=== PATIENT | female | born 1995 | race Caucasian/White ===

== ENCOUNTER 2018-08-04 10:38 | Emergency (ER) | payer OTHER ==
--- NOTE | 2018-08-04 10:47 | EDPHY ---
HPI/HX/ROS/PE/MDM Narrative: CLINICAL IMPRESSION: Head injury, headache, nausea ASSESSMENT/PLAN: Patient is a 22-year-old female with a history of remote concussion who presents to the emergency department after sustaining a head injury while skiing. Patient is well appearing and in no acute distress, complains of generalized headache and low-grade nausea. The fall was witnessed and there was no loss of consciousness however there was significant damage done to her helmet. Her neurological exam is grossly normal with no focal deficit. She has no new focal neurologic deficit, there has been no altered mentation, there are no clinical findings to suggest skull fracture, there is no known bleeding disorder, there has been no vomiting and no posttraumatic seizure. She had no midline neck or back pain, no findings to suggest traumatic spinal injury. Given the patients mechanism and damage to helmet we do feel a head CT is indicated at this time. Head CT and C-spine revealed no acute abnormality. History and physical exam is consistent with concussion. There were no findings to suggest skull fracture, vertebral fracture, subluxation, ICH, epidural compression syndrome or cauda equina. The patient was observed for a period of time, her neurological exam remained grossly normal with no focal deficit and she reported feeling much better- only complained of mild global KHAN , denies nausea. She was able to ambulate independently and without difficulty. The patient had no further concerns. The patient is visiting from [place] for a ski race however is returning home tomorrow. She understands the importance of repeat exam an clearance prior to returning to skiing or other contact sports. Strict return precautions were discussed- they will return to the emergency department for altered mentation, lethargy, vomiting, seizure, abnormal movements or for any other concerning symptom. Patient verbalizes understanding and is in agreement with this plan. Case, results and plan of care discussed with Dr. Anthony. DIFFERENTIAL DX: Head injury including but not limited to concussion, skull fracture, intraparenchymal contusion, subarachnoid, subdural and epidural hematoma. ED COURSE: 10:45 a.m.: Patient arrived by EMS, Dr. Anthony and myself at bedside. Plan discussed with Dr. Anthony. CHIEF COMPLAINT: Head injury, headache, nausea HPI: Patient is a 22-year-old female with a history of remote concussion who presents to the emergency department after sustaining a head injury while skiing. 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 She was helmeted, there was no loss of consciousness. She did sustain a significant crack to her helmet. Patient was able to get down the rest of the hill however when she was at the urgent care at [place] started to experience some headache and nausea. This was worsened every time as she tried to sit up or move around. EMS was ultimately called and the patient was brought in by ambulance. Patient presents complaining of generalized, global headache with associated nausea. She denies any visual changes or focal weakness. She denies any neck or back pain. Patient denies any saddle paresthesia, motor weakness, numbness/tingling or extremities, urinary retention or loss of bowel/bladder control. PMH: Remote concussion Pertinent Past Surgical History: Denies Family History: Noncontributory Social History: Denies alcohol, denies illicit drug use and denies smoking REVIEW OF SYSTEMS: All other systems negative Constitutional: [No fever, no chills, appetite change.] Eyes: [No discharge, vision change] ENT: [No sore throat, congestion, ear pain.] Cardiovascular: [No chest pain, no palpitations.] Respiratory: [No cough, no shortness of breath.] Gastrointestinal: [Nausea. No abdominal pain, no vomiting, diarrhea.] Genitourinary: [No hematuria, dysuria, flank pain, pelvic pain] Musculoskeletal: [No back pain, joint swelling, joint pain, myalgias.] Skin: [No rashes, color change.] Neurological: [Headache. No dizziness, weakness.] PHYSICAL EXAM: General Appearance: [Alert, oriented, appropriate, cooperative, NAD, well hydrated, non-toxic appearing, VSS, no hypoxia.] HENT: [ Normocephalic, atraumatic. Bilateral external ears are normal. Bilateral tympanic membranes are normal with pearly patel reflex. No Hawthorne sign or raccoon eyes. Nares are clear, mucosa is pink. Oropharynx is clear, uvula is midline. There is no tonsillar enlargement or exudate. No malocclusion, no mandibular tenderness. The dentition is normal.] Eyes: [PERRLA, no acute vision change, nystagmus, swelling, discharge, pain or photosensitivity. Conjunctiva pink, no pallor or injection] Neck: [Supple, nontender, no lymphadenopathy, no midline pain, mild bilateral cervical paraspinal muscle tenderness into trapezius muscles, FROM, no meningismus.] Respiratory: [There are no retractions, lungs are clear to auscultation.] Cardiac: [Regular rate and rhythm, no murmurs or gallops.] Gastrointestinal: [Abdomen is soft, nontender, bowel sounds normal, no masses/ hernia, no rigidity, guarding or focal peritoneal findings.] Neurological: MENTAL STATUS: Patient is alert and oriented to person, place, time, and situation. Recent and remote memory are intact. Attention and concentration are normal. Found knowledge is appropriate to level of education. Mood and affect normal. SPEECH: Language including naming, repetition, comprehension, and spontaneous speech are normal. No dysarthria or dysphagia. CRANIAL NERVES: II: Visual jay are full to confrontation. Vision is grossly intact. III, IV, : Pupils are equal, round, reactive to light. Extraocular eye movements are full and without nystagmus. V: Facial sensation is intact to touch symmetrically in all 3 divisions. VII: Face is symmetric at rest with no asymmetry of grimace or evidence of facial weakness. VIII: Hearing is intact bilaterally to finger rub. IX, X: Palate is midline and elevates symmetrically with intact cough/gag. XI: Sternocleidomastoid and trapezius strength is normal. XII: Tongue protrudes midline without atrophy or fasciculations. MOTOR: Normal bulk and tone symmetrically in the upper and lower extremities. Upper extremities: shoulder abduction, elbow flexion, elbow extension, flexion of fingers and finger abduction strength 5/5 bilaterally. Lower extremities: hip flexion, knee flexion and extension, plantar and dorsiflexion of foot, and great toe extension strength 5/5 bilaterally. No pronator drift. SENSORY: Sensation is intact to light touch and symmetric in the UE's in LE's bilaterally. Romberg is negative. COORDINATION: Fine motor and rapid alternating movements are normal. Finger to nose is normal bilaterally. [id number] is normal bilaterally. No abnormal movements noted. There is no tremor at rest or with posture or action. GAIT/STATION: Casual, straightforward gait is normal. Patient can walk on toes and on heels. No gait instability. Back: No step-off, palpable bony abnormality, edema, erythema or ecchymosis of the thoracic or lumbar spines. TTP: No tenderness to palpation of the thoracic or lumbar spines. Full range of motion of all spines. 5/5 and equal strength of the UEs and LEs bilaterally including shoulder shrug. Pulses: 2+ and equal radial, DP and PT pulses bilaterally. Sensation intact and symmetric to light touch from face, UEs and LEs bilaterally. Skin: [Warm, dry, no rashes, no nodules on palpation.] Musculoskeletal: [Extremities are symmetrical, full range of motion, no tenderness, deformity, swelling, or erythema.] Psychiatric: [Patient is oriented X 3, there is no agitation.] MEDICAL DECISION MAKING: Patient was seen with Dr. Anthony. Diagnosis: Concussion. New, requires workup Summary: [ See Assessment and Plan for summary of ED visit ] Clinical lab tests: Not applicable. Independent visualization of images, tracing, or specimens: Yes. Decision to obtain medical records or history from someone other than the patient: No Review / Summarize previous medical records: Not applicable Discussed patient with another provider: Yes, Dr. Anthony Patient Progress: Stable, discharged home. (Charmaine Yadav) MDM: I did not see this patient while she was in the emergency department. However her care was discussed with PA while the patient was in the department. I agree with treatment plan and management (Rupesh Anthony) - Data Points Imaging Results: Imaging Impressions Head CT 08/04/18 10:44 Impression: No acute intracranial process or cervical spine fracture/ subluxation. Cervical Spine CT 08/04/18 11:31 Impression: No acute intracranial process or cervical spine fracture/ subluxation. General Initial Vital Signs: Initial Vital Signs Temperature (C) 37 C 08/04/18 10:46 Heart Rate 66 08/04/18 10:46 Respiratory Rate 17 08/04/18 10:46 Blood Pressure 133/91 H 08/04/18 10:46 O2 Sat (%) 97 08/04/18 10:46 O2 Delivery Mode Room Air Allergies/Adverse Reactions: No Known Allergies Allergy (Unverified 08/04/18 10:51) Home Medications: Medication Instructions Recorded Ondansetron Odt [Zofran Odt 4 mg 4 mg PO Q8 PRN #10 tab 08/04/18 (*)] Departure - Departure Disposition: Home, Routine, Self-Care Clinical Impression: Concussion Qualifiers: Encounter type: initial encounter Loss of consciousness presence/duration: without LOC Qualified Code(s): S06.0X0A - Concussion without loss of consciousness, initial encounter Condition: Good Instructions: Concussion (ED) Additional Instructions: DISCHARGE INSTRUCTIONS FROM YOUR DOCTOR Thank you for visiting our emergency department today. Please keep in mind that discharge from the emergency department does not mean that there is nothing wrong - it simply means that we have not identified an emergency condition that requires further evaluation or treatment in the hospital. You should always plan to follow up with primary care for re-evaluation of your condition in the next 2-3 days. If you have been referred to a specialist, please call as soon as possible (today or tomorrow) to schedule your follow up appointment at the appropriate time. For pain control: You may take Tylenol, I recommend 500-1000 mg every 6-8 hours as needed. Take with food and a full glass of water. Stop taking if this is upsetting her stomach. Do not exceed 4000 mg in a 24 hr period. You may also take ibuprofen, recommend 400 mg every 6 hr. Take with food and a full glass of water. Stop taking if this upsets her stomach. Do not exceed 2400 mg in a 24 hr period. You have been given Zofran, take as needed for nausea. GRADUAL [id number] PROTOCOL Patient must be symptom free for 24 hours before progressing to the next step. If patient has symptoms during Step's 2-6, stop activity and return previous step. Patient can not progress to next step unless current step can be completed with out any symptoms (ie headache, dizziness, confusion...) Bright lights, TV, computers, music, reading can trigger or worsen concussion symptoms thus should be avoided or used in moderation. Step 1. NO same day return to play, rest only , do not proceed to Step 2 until all symptoms have resolved Step 2. LIGHT aerobic exercise (ie walking, swimming or stationary cycling), while keeping intensity < 70% max heart rate Step 3. Sport-specific exercise (ie skating drills in ice hockey-no passing, running drills in soccer-no passing), NO HEAD IMPACT ACTIVITIES Step 4. NON-contact training, with progression to more complex drills (ie passing drills) NO HEAD IMPACT ACTIVITIES Step 5. Full-contact practice AFTER getting medical clearance Step 6. Return to game play This was based from: Consensus statement on concussion in sport: the 4th International Conference on Concussion in Sport held in [place], May 2012. Br J Sports MEd. 2013;47(5):250- 258 People present with illnesses and injuries in different ways, and it is always possible that we have missed something. You may always return for re-evaluation if symptoms worsen or if they are not improving or if you develop new/different symptoms. Again, thank you for choosing our emergency department. We hope that you feel better. Referrals: Patient,NotPresent [Unknown] - As per Instructions Prescriptions: Ondansetron Odt [Zofran Odt 4 mg (*)] 4 mg PO Q8 PRN #10 tab PRN Reason: Nausea/Vomiting, Can'T Take Po
[2018-08-04 12:38] VITALS: BP 118/78
== END 2018-08-04 12:49 | disposition home or self-care (01) ==
DX: S06.0X0A Concussion without loss of consciousness, initial encounter (principal); V00.321A Fall from snow-skis, initial encounter; Y93.23 Activity, snow (alpine) (downhill) skiing, snowboarding, sledding, tobogganing and snow tubing; Y92.828 Other wilderness area as the place of occurrence of the external cause